=== PATIENT | female | born 1985 | race Caucasian/White ===

== ENCOUNTER 2018-08-24 18:42 | Outpatient (REF) | payer BC, SELFPAY ==
[2018-08-24 19:14] LABS: Abs Immature Grans 0.01 k/cumm (0.0-0.09); Absolute Basophil Count 0.02 k/cumm (0.0-0.2); Absolute Eosinophil Count 0.08 k/cumm (0.0-0.7); Absolute Lymphocyte Count 2.37 k/cumm (1.2-3.4); Absolute Monocyte Count 0.44 k/cumm (0.11-0.7); Absolute Neutrophil Count 4.52 k/cumm (1.2-6.7); Basophils % 0.3; Eosinophils % 1.1; HGB 13.9 g/dL (12.0-15.5); Immature Grans % 0.1; Lymphocytes % 31.9; Mean Corp. HGB Concentration 33.1 g/dL (32.0-36.0); Mean Corpuscular Hemoglobin 29.3 pg (27.0-33.0); Mean Corpuscular Volume 88.6 fL (80-95); Mean Platelet Volume 11.3 fL (8.0-11.0); Monocytes % 5.9; Neutrophils % 60.7; Platelet Count 237 x1000/uL (130-400); RBC 4.74 m/cumm (4.00-5.20); RBC Distribution Width 13.1 % (11.7-14.6); White Blood Cell Count 7.44 k/cumm (4.4-10.8)
[2018-08-24 19:31] LABS: HDL Cholesterol 73 mg/dL (40-60); LDL CHOLESTEROL 99 mg/dL (<100)
[2018-08-24 19:58] LABS: ESR 6 MM/HR (0-20)
[2018-08-26 16:16] LABS: ANA Interpretation Negative (NEGAT)
== END 2018-08-24 19:02 ==
LOC: NCHCN 18:42
PROVIDERS: PCP Nurse Practitioner Family; Visit Provider Nurse Practitioner Family
DX: I73.00 Raynaud's syndrome without gangrene (principal)
CPT/HCPCS: 83721; 85652; 83718; 85025; 86038

== ENCOUNTER 2020-12-26 10:12 | Outpatient (REF) | payer BC, SELFPAY ==
[2020-12-26 14:10] LABS: HCT 44.7 % (36.0-46.0); HGB 14.2 g/dL (11.2-15.7); MCH 29.8 pg (27.0-33.0); MCHC 31.8 % (32.0-36.0); MCV 93.7 fL (80-95); MPV 11.3 fL (8.0-11.0); Platelet Count 238 10^3/uL (130-400); RBC 4.77 10^6/uL (3.93-5.22); RDW 12.4 % (11.7-14.6); RDW-SD 42.7 fL; WBC 6.73 10^3/uL (4.4-10.8)
[2020-12-26 14:13] LABS: Hemoglobin A1C 5.3 % (<5.7)
[2020-12-26 20:24] LABS: TSH (W/Ref FT4) 2.92 uIU/mL (0.36-3.74)
[2020-12-27 00:52] LABS: Vitamin D 25 Total 53.9 ng/mL (30-100)
== END 2020-12-26 10:13 | disposition home or self-care (01) ==
LOC: NCHCN 10:12
PROVIDERS: PCP Nurse Practitioner Family; Visit Provider Nurse Practitioner Family
DX: Z00.00 Encounter for general adult medical examination without abnormal findings (principal); L70.0 Acne vulgaris; R53.83 Other fatigue
CPT/HCPCS: 82306; 85027; 83036; 84443

== ENCOUNTER 2021-11-26 02:45 | Outpatient (CLI) | payer BC, SELFPAY ==
[2021-11-26 16:19] LABS: Kit/Specimen SENT
[2021-11-26 16:26] LABS: Abs Immature Grans 0.02 10^3/uL (0.0-0.06); Absolute Basophil Count 0.03 10^3/uL (0.0-0.2); Absolute Eosinophil Count 0.11 10^3/uL (0.0-0.7); Absolute Monocyte Count 0.62 10^3/uL (0.1-0.8); Absolute Neutrophil Count 7.05 10^3/uL (1.2-6.7); Basophils % 0.3; Eosinophils % 1.1; HCT 37.2 % (36.0-46.0); HGB 12.7 g/dL (11.2-15.7); Immature Grans % 0.2; Lymphocytes % 20.3; MCH 30.8 pg (27.0-33.0); MCHC 34.1 % (32.0-36.0); MCV 90 fL (80-95); MPV 10.5 fL (8.0-11.0); Monocytes % 6.3; Neutrophils % 71.8; Platelet Count 208 10^3/uL (130-400); RBC 4.13 10^6/uL (3.93-5.22); RDW 12.1 % (11.7-14.6); RDW-SD 39.9 fL; WBC 9.83 10^3/uL (4.4-10.8)
[2021-11-26 17:26] LABS: TSH (W/Ref FT4) 3.37 uIU/mL (0.36-3.74)
[2021-11-28 09:57] LABS: Hepatitis B Surface Ag Negative (Negative)
[2021-11-28 10:39] LABS: HIV-1/2 Ag & Ab Screen Negative (Negative)
[2021-11-28 10:53] LABS: Hepatitis C Ab w Rflx HCV PCR Negative (Negative)
[2021-11-28 11:09] LABS: Varicella IgG Antibody Positive (See Note)
[2021-11-28 11:13] LABS: Rubella IgG Ab (UVM) Positive (See Note)
[2021-11-29 23:17] LABS: Syphilis IgG w/Reflex Nonreactive (Nonreactive)
== END 2021-11-26 02:46 | disposition home or self-care (01) ==
LOC: LBO 02:45
PROVIDERS: PCP Nurse Practitioner Family; Visit Provider Advanced Practice Midwife
DX: O09.521 Supervision of elderly multigravida, first trimester (principal); Z3A.10 10 weeks gestation of pregnancy
CPT/HCPCS: 86787; 86803; 86850; 86900; 86901; 87340; 87389; 84443; 85025; 86762; 86780

== ENCOUNTER 2021-11-26 16:13 | Outpatient (REF) | payer BC, SELFPAY ==
--- NOTE | 2021-11-26 15:00 | PAPFT_PTH ---
PATIENT: Ray Queen LOC: [facility] U#:[id number] AGE/SX: 36/F ROOM: RE11/26/[address]: Cristina Michael CNM : 1985 BED: DIS: 11/26/2021 SPEC #: [id number] RECD: 11/26/21 17:21 STATUS: SUSANNAH REElva #: [id number] JOLLY: 11/26/21 15:[address]: Cristina Michael DEPT: [facility] Cytology RECD BY: Niyah Schwartz ENTERED: 11/26/21 17:22 SP TYPE: PAPFT OTHR DR: Elvira Parra Tissues: 1 - CX/ENDOCX FOR PAP SMEARS Procedures: PAP THIN PREP/UVM Screening HPV DNA PROBE Comments: [id number] (CHLAMYDIA/GC)
[2021-11-27 15:12] LABS: Chlamydia Result Negative (Negative); GC Result Negative (Negative)
== END 2021-11-26 16:14 | disposition home or self-care (01) ==
LOC: LBN 16:13
PROVIDERS: PCP Nurse Practitioner Family; Visit Provider Advanced Practice Midwife
DX: Z11.3 Encounter for screening for infections with a predominantly sexual mode of transmission (principal); Z12.4 Encounter for screening for malignant neoplasm of cervix; Z11.51 Encounter for screening for human papillomavirus (HPV)
CPT/HCPCS: 87491; 87591; 88142; 87624

== ENCOUNTER 2021-11-26 17:59 | Outpatient (REF) | payer BC, SELFPAY ==
[2021-11-26 19:10] LABS: Tricyclic Antidepressants Negative (Negative)
[2021-11-26 19:11] LABS: *BARBITURATES SCREEN URINE Negative (Negative); *BENZODIAZEPINES SCREEN URINE Negative (Negative); Cannabinoids THC Negative (Negative); Cocaine Screen,Urine Negative (Negative); OPIATES URINE SCREEN Negative (Negative)
[2021-11-26 22:50] LABS: *AMPHETAMINES SCREEN URINE Negative (Negative)
[2021-12-04 09:07] LABS: Buprenorphine Negative ng/mL (Cutoff: 5.0); Norbuprenorphine Negative ng/mL (Cutoff: 2.5)
== END 2021-11-26 18:00 | disposition home or self-care (01) ==
LOC: LBN 17:59
PROVIDERS: PCP Nurse Practitioner Family; Visit Provider Advanced Practice Midwife
DX: O09.521 Supervision of elderly multigravida, first trimester (principal); Z3A.10 10 weeks gestation of pregnancy
CPT/HCPCS: 80307; 87086

== ENCOUNTER 2022-03-19 02:59 | Outpatient (CLI) | payer BC, SELFPAY ==
[2022-03-19 09:28] LABS: HCT 32.1 % (36.0-46.0); HGB 10.5 g/dL (11.2-15.7); MCH 29.8 pg (27.0-33.0); MCHC 32.7 % (32.0-36.0); MCV 91 fL (80-95); Platelet Count 226 10^3/uL (130-400); RBC 3.52 10^6/uL (3.93-5.22); RDW 12.2 % (11.7-14.6); RDW-SD 40.5 fL; WBC 8.65 10^3/uL (4.4-10.8)
[2022-03-19 09:42] LABS: Glucose,1 Hr (Glucola) 90 mg/dL (80-140)
[2022-03-20 05:46] LABS: Vitamin D 25 Total 24.2 ng/mL (30-100)
== END 2022-03-19 03:00 | disposition home or self-care (01) ==
LOC: LBO 02:59
PROVIDERS: Advanced Practice Midwife; PCP Nurse Practitioner Family; Visit Provider Advanced Practice Midwife
DX: O09.522 Supervision of elderly multigravida, second trimester (principal); Z3A.26 26 weeks gestation of pregnancy
CPT/HCPCS: 36415; 82306; 82950; 85027

== ENCOUNTER → 2022-05-05 02:03 | Outpatient (CLI) | payer BC, SELFPAY ==
--- NOTE | 2022-05-05 09:15 | DI.US_ITS ---
Exam(s) US OB ABBY WEIGHT EXAM: US OB ABBY WEIGHT CLINICAL HISTORY: assess growth and presentation HX macrosomia, O09.529. TECHNIQUE: Transabdominal obstetrical ultrasound was performed. [place] [facility] [place] FINDINGS: There is a single viable intrauterine gestation with cardiac activity identified-150 bpm The fetus is presently in cephalic position . Amniotic fluid: There is a normal amount of amniotic fluid with an ABBY of 19.4cm. Placental location: The placenta is fundal-posterior grade 2. Smaller accessory lobe also noted ante riorly.,With no evidence of placenta previa. Dating parameters place this at approximately 33 weeks and 4 days gestational age, implying SUZY of June 19, 2022. BPD measures 34 weeks and 4 days HC measures 32 weeks and 6 days AC measures 33 weeks and 2 days FL measures 33 weeks and 3 days Estimated weight is 2190 gm-4 pounds 13 ounces Fetus is at the 37th percentile on the Hadlock scale. IMPRESSION:: Viable 3rd trimester gestation, as described above. DATA REPOSITORY:
== END ==
PROVIDERS: PCP Nurse Practitioner Family; Visit Provider Advanced Practice Midwife
DX: O09.523 Supervision of elderly multigravida, third trimester
CPT/HCPCS: 76816

== ENCOUNTER 2022-05-29 17:21 | Outpatient (REF) | payer BC, SELFPAY ==
[2022-05-29 17:26] LABS: *AMPHETAMINES SCREEN URINE Negative (Negative); *BARBITURATES SCREEN URINE Negative (Negative); *BENZODIAZEPINES SCREEN URINE Negative (Negative); Cannabinoids THC Negative (Negative); Cocaine Screen,Urine Negative (Negative); OPIATES URINE SCREEN Negative (Negative)
[2022-05-29 17:27] LABS: COMMENT (LAB VIEW ONLY) 24.97 mg/dL; PROTEIN < 6.0 mg/dL; Tricyclic Antidepressants Negative (Negative)
[2022-06-05 12:38] LABS: Buprenorphine Negative ng/mL (Cutoff: 5.0); Norbuprenorphine Negative ng/mL (Cutoff: 2.5)
== END 2022-05-29 17:22 | disposition home or self-care (01) ==
LOC: LBN 17:21
PROVIDERS: PCP Nurse Practitioner Family; Visit Provider Advanced Practice Midwife
DX: O09.523 Supervision of elderly multigravida, third trimester (principal); R60.0 Localized edema
CPT/HCPCS: 80307; 80348; 82565; 84156; 87081

== ENCOUNTER 2022-06-14 04:15 | Inpatient (IN) | payer BC, SELFPAY ==
[2022-06-14] VITALS (68 sets, daily range): BP systolic 70–146; BP diastolic 51–91; PULSE 0–157; RESP 18; TEMP 36.4–36.9; O2SAT 99
--- NOTE | 2022-06-14 07:53 | HPE_ITS ---
Date of service: 06/14/22 Time of Service: 07:53 Assessment and Plan Assessment and plan (1) Spontaneous onset of labor: Status: Acute Assessment and plan: Admit to Center. Comfort measures. Covid- 19 test. Anticipate . (2) Previous section: Assessment and plan: OR team and Dr. Caraballo notified of admission. Anticipate . OB-HPI Labor/Delivery History of Present Illness Reason for Visit: labor Chief Complaint: Uterine Contractions. SUZY Calculator Estimated Delivery Date Method Current WG Current Estimate 06/19/22 LMP (Certain) 39w 2d Other Estimates 06/15/22 Ultrasound #1 39w 6d Comments: Ray presented this morning with regular contractions every 5-8 minutes and strong contractions. Cervix was 1 c,/ soft/-2 and ballotable. She was admitted to observation and she tried various positions for comfort with good effect. She was resting comfortably on her side at 0730 and was reexamined. Cervix now 5 cms with large bulging bag of water. vertex remains -2 and ballotable. The OR team wa notified and is en route for another OR case at this time. Dr. Klaudia Alicea was also notified of admission. History of Present Expected Delivery Route/Plan TOLAC/ - CNM FOB/ - Dhaval Queen (2nd child together) BG Pt hopes to reach down for baby at delivery; FOB will not be cutting cord Will choose [place] [facility] [place] GBS negative Specific Issues/Plan 1. Prev C/S for breech, desires TOLAC/ 1a. 30 wk appt w/ for , consent signed 04/16 1b. Ray prefers natural labor and IOL at [facility] [place] after 40 weeks. She does not wish to visit [facility] [place] prior to 41 weeks. 2. Had COVID on October 23 (@ 5-6 wks), mild sx. Advised to begin low dose ASA @ 12 wks 3. Pt is vaccinated but not boosted, FOB received booster 4. AMA: cDNA screen (LR female) & level 2 scan & MFM consult @ [facility] [place], sched'ed for 01/30/22 4a. Declines CF/SMA and AFP screens. US at [facility] [place] 01/30 normal 4b. [facility] [place] rec's growth scan 32-34 weeks d/t prior macrosomia, appropriate for TOLAC per MFM 01/30/22 5. Depression/anxiety, no meds but is in therapy (venkata/Ofelia Jc) 6a. Stopped therapy at this time. Yoga teaching training. Practices meditation. 6. Marital stress over , accepts referral to [facility], plan LC consult @ 36 wks 7. Hx macrosomia, declines early glucola at initial OB. Used Freshtest @ 27 wks, result=90 8. Vit D @ 24.2, advised to supplement with D3 2000 IU daily, recheck level 9. extra lobe of placenta noted at 33 weeks US - careful exam of placenta after removal PFSH All Active Problems (Updated 06/14/22 @ 08:03 by Sherie Velazquez CNM) Spontaneous onset of labor (Acute) Pedal edema (Acute) COVID-19 affecting , antepartum (Acute) Prior macrosomia, antepartum (Acute) History of depression, currently (Acute) Marital relationship problem (Acute) stress over Elderly multigravida, currently (Acute) Uterine scar from previous delivery affecting (Acute) Personal history of COVID-19 (Acute) Positive test (Acute 04/10/16) Medical History (Updated 06/14/22 @ 08:03 by Sherie Velazquez CNM) Acne Surgical History (Updated 10/18/21 @ 10:01 by Inna Goyal NP) Previous section 10/2016 for Breech presentation Tooth extraction [place]/ other tooth extraction. Age 17. No complications with anesthesia. Family History Mother Obesity Father Alcohol abuse Herniated disc, cervical Sister Obesity Grandfather Heart disease MGF Grandmother Heart disease MGM Breast cancer PGM Other Essential hypertension Social History Smoking/Tobacco Use Status: Never Smoking risk assessment performed?: Yes Drug use: Never History History 2 Para 1 Hx # Term Pregnancies 1 Multiple births 0 Hx # Pregnancies 0 Ectopic pregnancies 0 AB induced 0 Hx Number of Living Children 1 AB spontaneous 0 Past Pregnancies Del. Date GA/Weeks # Preg Succ Route Wgt Sex Labor Lgth Anesth esia Location Prov Complic 11/26/16 40 No Yes [address] Rajesh Fuchs @ [facility] Delivery Date: 11/26/16 Last Updated by: Cristina Michael Scheduled C/S for breech, did not attempt ECV because of anterior placenta, but did try acupuncture, chiropractic, etc Eliud Meds Allergies and Home Medications Allergies Allergy/AdvReac Type Severity Reaction Status Date / Time cefaclor [From Ceclor] Allergy Intermediate Hives Verified 06/13/22 12:42 gluten AdvReac Unknown Verified 06/13/22 12:42 Mold Spores Allergy Uncoded 06/13/22 12:42 Home Medications Medication Instructions Recorded Confirmed Type KTI-jony-MW-omega 3-fat com #1 27 cap PO DAILY 10/18/21 06/13/22 History mg-1 mg-300 mg capsule ascorbate calcium (vitamin C) 500 500 mg PO DAILY 10/18/21 06/13/22 History mg tablet aspirin 81 mg tablet,delayed 81 mg PO DAILY #90 tabs 11/26/21 06/13/22 Rx release B.coagulan,subtilis 1 bill. tab PO 12/26/21 06/13/22 History cell-inulin 1 gram-vit C 15 mg chew tablet (up4 Probiotics Plus Prebiotic) pyridoxine (vitamin B6) 25 mg 25 mg PO DAILY 12/26/21 06/13/22 History tablet doxylamine succinate 25 mg tablet 25 mg PO QHS PRN 03/19/22 06/13/22 History (Unisom (doxylamine)) ondansetron HCl 4 mg tablet 4 mg PO TID PRN 03/19/22 06/13/22 History Exam Detailed Labor and Delivery Exam Dilation: 5 Effacement (%): 90 station: -2 Cervix position: mid Consistency: soft Chowdary Score: Cervical Points Exam 0 1 2 3 Dilation Closed 1-2cm 3-4 cm 5-6cm Effacement 0-30% 40-50% 60-70% 80% Consistency Firm Medium Soft Station -3 -2 -1,0 +1,+2 Position Posterior Mid Anterior Amniotic Membrane Status: Intact Monitor Mode: External Contraction Frequency(min): every 5 Contraction Duration(sec): 60 Contraction Intensity: Moderate/Strong Fetus A Heart Rate Baseline: 140 Monitor Accelerations: 15 X 15 Monitor Decelerations: None Variability: Moderate (6-25 BPM) Presentation: Vertex Categories: Category I Est. Weight: 7 lb Respiratory Exam Respiratory Exam: Normal Cardiovascular Exam Cardiovascular Exam: Normal Abdominal Exam Abdominal Exam: Normal Exam Exam: Normal Extremities Exam Extremities Exam: Normal Skin Exam Skin Exam: Normal Psychiatric Exam Psychiatric Exam: Normal Risk Assessment Risk for Shoulder Dystocia Historical/Initial OB: NEGATIVE FOR: Pelvic Abnormality, Pre- BMI>30, Previous Shoulder Dystocia or Previous Macrosomia 40 Weeks: NEGATIVE FOR: EFW> 4500 gms, Maternal Weight Gain >40lb or Post Dates Risk for Pre-Eclampsia Date Initiated/Initials: indicated due to COVID infection in early pregnany 11/08/21 jk Yes, if one or more: NEGATIVE FOR: Hx Pre-E/Gest HTN, Chronic HTN, Multiple Gestation, Pre-gestational DM, Renal Disease, Systemic Lupus or APA Syndrome Yes, if 2 or more: POSITIVE FOR: Age>= 35 yrs; NEGATIVE FOR: Nulliparity, >10yr btwn pregnancies, BMI>30, ethinicty, Mother/Sister w/ Pre-E or Previous IUGR Risk for Post- Hemorrhage Initial: NEGATIVE FOR: Multiple Gestation, Previous PPH, Known Clotting Deficiency, Grand Multiparity or Anticoagulation At Risk?: No Risks Reviewed Risks Reviewed Upon Admission: Yes
[2022-06-14 08:51] LABS: Source Nasal/Nares
[2022-06-14 08:54] LABS: HCT 41.4 % (36.0-46.0); HGB 13.7 g/dL (11.2-15.7); MCH 29.7 pg (27.0-33.0); MCHC 33.1 % (32.0-36.0); MCV 90 fL (80-95); MPV 10.7 fL (8.0-11.0); Platelet Count 219 10^3/uL (130-400); RBC 4.62 10^6/uL (3.93-5.22); RDW 13.2 % (11.7-14.6); RDW-SD 43.6 fL; WBC 15.72 10^3/uL (4.4-10.8)
--- NOTE | 2022-06-14 08:55 | W.PM.OBNL1 ---
Date of service: 06/14/22 Time of Service: 09:09 Informed Consent Informed Consent: Vaginal after (verbal consent obtained by CNM service during and reaffirmed at time of admission.) Contractions Monitor Mode: External Contraction Frequency(min): 3-4min Contraction Duration(sec): 40-50 Fetus A Heart Rate Baseline: 150 Presentation: Cephalic (per CNM report) Variability: Moderate (6-25 BPM) Categories: Category I FHR Rhythm: Regular Characteristics: Normal Accelerations: 15 X 15 Decelerations: None Assessment Note: Pt CNM report vtx with high presenting part. Assessment and Plan Assessment and plan (1) Spontaneous onset of labor: Status: Acute (2) Desires vaginal after trial: Status: Acute Assessment and plan: Currently surveillance is reassuring. Anesthesia provider and OR team of been notified. Patient currently tolerating contractions well. Plans to anticipate a vaginal . She has repeated her desire to undergo a trial of labor after a previous delivery. (3) Uterine scar from previous delivery affecting : Status: Acute Assessment and plan: Continue monitoring heart rate tracing and contraction pattern. Follow labor curve closely. Objective Abnormal lab results 06/14/22 Range/Units 08:20 WBC 15.72 H (4.4-10.8) 10^3/uL Temp Pulse Resp BP Pulse Ox 98.1 F 94 H 18 135/91 H 99 06/14/22 08:38 06/14/22 08:55 06/14/22 08:38 06/14/22 08:38 06/14/22 08:38 Laboratory Results WBC 15.72 10^3/uL (4.4-10.8) H 06/14/22 08:20 RBC 4.62 10^6/uL (3.93-5.22) 06/14/22 08:20 Hgb 13.7 g/dL (11.2-15.7) 06/14/22 08:20 Hct 41.4 % (36.0-46.0) 06/14/22 08:20 MCV 90 fL (80-95) 06/14/22 08:20 MCH 29.7 pg (27.0-33.0) 06/14/22 08:20 MCHC 33.1 % (32.0-36.0) 06/14/22 08:20 RDW 13.2 % (11.7-14.6) 06/14/22 08:20 Plt Count 219 10^3/uL (130-400) 06/14/22 08:20 MPV 10.7 fL (8.0-11.0) 06/14/22 08:20 COVID-19 Source Nasal/Nares 06/14/22 08:00 Objective Narrative Objective Narrative: Breathing and vocalizing during contractions. Standing in room able to recruit contractions. Subjective Interval history since last seen: Pt of the CNM service. Planning HAN. Uterine contractions during the night. Han contractions well. Primarily back labor. Results Hemoglobin/Hematocrit: Hgb 13.7 g/dL (11.2-15.7) 06/14/22 08:20 Hct 41.4 % (36.0-46.0) 06/14/22 08:20 Abnormal Lab Findings: Abnormal Labs 06/14/22 08:20 WBC 15.72 H
--- NOTE | 2022-06-14 09:19 | W.ANESPRE ---
General Info Height: 5 ft 6 in Weight: 77.564 kg Body Mass Index (BMI): 27.6 Meds Allergies and Home Medications Allergies Allergy/AdvReac Type Severity Reaction Status Date / Time cefaclor [From [facility]] Allergy Intermediate Hives Verified 06/13/22 12:42 gluten AdvReac Unknown Verified 06/13/22 12:42 Mold Spores Allergy Uncoded 06/13/22 12:42 Home Medication Medication Instructions Recorded OYB-dift-BL-omega 3-fat com #1 27 cap PO DAILY 10/18/21 mg-1 mg-300 mg capsule ascorbate calcium (vitamin C) 500 500 mg PO DAILY 10/18/21 mg tablet aspirin 81 mg tablet,delayed 81 mg PO DAILY #90 tabs 11/26/21 release B.coagulan,subtilis 1 bill. tab PO 12/26/21 cell-inulin 1 gram-vit C 15 mg chew tablet (up4 Probiotics Plus Prebiotic) pyridoxine (vitamin B6) 25 mg 25 mg PO DAILY 12/26/21 tablet doxylamine succinate 25 mg tablet 25 mg PO QHS PRN 03/19/22 (Unisom (doxylamine)) ondansetron HCl 4 mg tablet 4 mg PO TID PRN 03/19/22 Current Visit Medications: Current Medications Generic Name Dose Route Start Last Admin Trade Name Freq PRN Reason Stop Dose Admin Sodium Chloride 500 mls @ 0 mls/hr 06/14/22 07:52 Saline 500ml Bag IV PRN PRN As Directed IV Miscellaneous Supplies 1 each 06/14/22 08:00 Iv Access IV DIRECTED ALETHEA Sodium Chloride 0 ml 06/14/22 07:52 Normal Saline Flush 10 Ml Syr IVP PRN PRN PFSH Active Problems Active Problems: Problem Status Onset Code Desires vaginal after trial O34.219 Spontaneous onset of labor Pedal edema R60.0 COVID-19 affecting , antepartum O98.519, U07.1 Prior macrosomia, antepartum O09.299 History of depression, currently O99.891, Z86.59 Marital relationship problem Z63.0 Elderly multigravida, currently O09.529 Uterine scar from previous delivery affecting O34.219 Personal history of COVID-19 Z86.16 Positive test 04/10/16 Z32.01 Medical History Medical History (Updated 06/14/22 @ 08:03 by Sherie Velazquez CNM) Acne Surgical History Surgical History (Updated 06/14/22 @ 09:18 by Klaudia Caraballo MD) Previous section 10/2016 for Breech presentation Tooth extraction [place]/ other tooth extraction. Age 17. No complications with anesthesia. Tobacco Smoking/Tobacco Use Status: Never Substance Use Substance use: Never Prental History History 2 Para 1 Hx # Term Pregnancies 1 Multiple births 0 Hx # Pregnancies 0 Ectopic pregnancies 0 AB induced 0 Hx Number of Living Children 1 AB spontaneous 0 Past Pregnancies Del. Date GA/Weeks # Preg Succ Route Wgt Sex Labor Lgth Anesthesia Location Prov Complic 11/26/16 40 No Yes 4195.[address] Fuchs @ [facility] Delivery Date: 11/26/16 Last Updated by: Cristina Michael Scheduled C/S for breech, did not attempt ECV because of anterior placenta, but did try acupuncture, chiropractic, etc Eliud Vital Signs and Lab Results Vital Signs Most Recent Vital Signs in EMR: Most Recent Vital Signs Temp Pulse Resp BP Pulse Ox 36.7 C 91 H 18 135/91 H 99 06/14/22 08:38 06/14/22 09:19 06/14/22 08:38 06/14/22 08:38 06/14/22 08:38 Lab Results Result Diagrams: 06/14/22 08:20 Blood Type / Crossmatch: No Data to Display Complete Blood Count: White Blood Count 15.72 10^3/uL (4.4-10.8) H 06/14/22 08:20 Red Blood Count 4.62 10^6/uL (3.93-5.22) 06/14/22 08:20 Hemoglobin 13.7 g/dL (11.2-15.7) 06/14/22 08:20 Hematocrit 41.4 % (36.0-46.0) 06/14/22 08:20 Platelet Count 219 10^3/uL (130-400) 06/14/22 08:20 Complete Metabolic Panel: No Data to Display Liver Function Panel: No Data to Display Coagulation Panel: No Data to Display Cardiac Panel: No Data to Display Arterial Blood Gas: No Data to Display Venous Blood Gas: No Data to Display Pancreas Panel: No Data to Display Thyroid Panel: No Data to Display Infectious Disease: Coronavirus (COVID-19)(PCR) Pending 06/14/22 08:00 Coronavirus 2019 Source Nasal/Nares 06/14/22 08:00 Blood Cultures: No Data to Display Toxicology Panel: Urine Amphetamines Screen Negative (Negative) 05/29/22 16:30 Urine Benzodiazepines Screen Negative (Negative) 05/29/22 16:30 Urine Barbiturates Screen Negative (Negative) 05/29/22 16:30 Urine Cocaine Screen Negative (Negative) 05/29/22 16:30 Urine Opiates Screen Negative (Negative) 05/29/22 16:30 Ur Tricyclic Antidepressants Screen Negative (Negative) 05/29/22 16:30 Ur Tetrahydrocannabinol (THC) Scrn Negative (Negative) 05/29/22 16:30 Panel: No Data to Display Anesthesia Assessment and Plan Anesthesia History Personal History: No History of Anesthesia Complications Family History: No Family History of Anesthesia Complications Exercise Tolerance Exercise Tolerance: Metabolic Equivalents>4 Cardiac & Pulmonary Exam Cardiac Exam: Normal S1/S2 Heart Sounds Pulmonary Exam: Clear Bilateral Breath Sounds ASA Classification ASA Score: ASA 2 NPO Status NPO Status: Full Stomach Status Status: Confirmed Anesthesia Plan Resuscitation Status: Full Code Monitors Used: Standard Monitors Preoperative Comments:: 37 yo female for TOLAC. Sig PMHx: never smoker, no current ETOH, Previous Anes: - c section with 1.5 mL/15 mcg fent/150 mcg morphine. 400 mcg phenyl t/o. c/o nausea and tingling hands.
[2022-06-14 09:23] LABS: COVID-19 PCR Negative (Negative)
[2022-06-14] MEDS: Lactated Ringers 500 ML IV (10:38)
--- NOTE | 2022-06-14 10:49 | W.PM.OBNL1 ---
Date of service: 06/14/22 Time of Service: 10:49 Informed Consent Informed Consent: Vaginal after (verbal consent obtained by [facility] service during and reaffirmed at time of admission.) Pelvic Exam Dilation: 6 Effacement (%): 100 station: -2 Position: OP Cervix Position: posterior Consistency: soft Comments: Consultation with Dr Caraballo re: cervical exam at 0930. She suggested AROm and that was performed for a large amount of clear fluid. Contractions have become stronger and Ray is begginning to experience more pelvic pressure. Anticipate . Contractions Monitor Mode: External Contraction Frequency(min): 2-3 Contraction Duration(sec): 50-60 Intensity: Moderate/Strong Fetus A Monitor: External (US) Heart Rate Baseline: 130 Presentation: Vertex Variability: Moderate (6-25 BPM) Categories: Category II FHR Rhythm: Regular Accelerations: 15 X 15 Decelerations: Variable (episodic) Amniotic Membrane Status: Ruptured Rupture Method: Artifical Amniotic Fluid: Clear Assessment and Plan Assessment and plan (1) Desires vaginal after trial: Status: Acute (2) Spontaneous onset of labor: Status: Acute Assessment and plan: IV started for LR 1000 cc bolus. position changes for comfort Will continue to monitor heart rate pattern. Anticipate , Objective Abnormal lab results 06/14/22 Range/Units 08:20 WBC 15.72 H (4.4-10.8) 10^3/uL Temp Pulse Resp BP Pulse Ox 98.1 F 97 H 18 135/91 H 99 06/14/22 08:38 06/14/22 10:47 06/14/22 08:38 06/14/22 08:38 06/14/22 08:38 Laboratory Results WBC 15.72 10^3/uL (4.4-10.8) H 06/14/22 08:20 RBC 4.62 10^6/uL (3.93-5.22) 06/14/22 08:20 Hgb 13.7 g/dL (11.2-15.7) 06/14/22 08:20 Hct 41.4 % (36.0-46.0) 06/14/22 08:20 MCV 90 fL (80-95) 06/14/22 08:20 MCH 29.7 pg (27.0-33.0) 06/14/22 08:20 MCHC 33.1 % (32.0-36.0) 06/14/22 08:20 RDW 13.2 % (11.7-14.6) 06/14/22 08:20 Plt Count 219 10^3/uL (130-400) 06/14/22 08:20 MPV 10.7 fL (8.0-11.0) 06/14/22 08:20 COVID-19 Source Nasal/Nares 06/14/22 08:00 SARS-CoV-2 (PCR) Negative (Negative) 06/14/22 08:00 Patient ABO/Rh A Positive 06/14/22 08:20 Antibody Screen NEGATIVE 06/14/22 08:20 Results Hemoglobin/Hematocrit: Hgb 13.7 g/dL (11.2-15.7) 06/14/22 08:20 Hct 41.4 % (36.0-46.0) 06/14/22 08:20 Abnormal Lab Findings: Abnormal Labs 06/14/22 08:20 WBC 15.72 H
[2022-06-14] MEDS: Lidocaine 1% Multi-Dose 20 ML VIAL IJ (14:45)
[2022-06-14] MEDS: Oxytocin 10 UNITS/ML VIAL IM (14:54)
--- NOTE | 2022-06-14 16:16 | OBVDS_ITS ---
Date of service: 06/14/22 Time of Service: 16:16 OB Labor/ Delivery Information Baby A Delivery Delivery Method: Spontaneaous Presentation: Vertex Amniotic Fluid: Clear Estimated Blood Loss: 300 Delivery Outcome: Liveborn Complications: none Note: Ray used the tub for comfort and progressed to full dilation in the tub and began having an urge to push at 130. FHTs were 130s during first stage of labor with occasional variable decelerations. FHTs 130s in second stage with episodic variable decelerations associated with pushing. Ray began pushing in the tub. Second stage huddle was done. She move to the stool after approximately 2 hours of pushing and was able to bring the caput down to the perineum at 1350. She requested to return to the tub and she continued pushing there for another 30-40 minutes. A large amount of caput was visible on the perineum with no advancement despite excellent pushing. The perineum was noted to be very tight. She was moved to the bed and resumed pushing in hands and knees position. Local anesthetic was infused in the perineum in preparation for possible episiotomy. The baby delivered with the next push. Spontaneous delivery of female delivered in JATINDER position. Baby was placed in mother's arms and dried and stimulated. She had a Spontaneous cry. The cord was clamped and cut by Ray. The placenta delivered spontaneously and appears to be intact with a three vessel cord. Pitocin 10 was administered IM before delivery of the placenta because the IV came out while she was pushing. The perineum was inspected and there was a 2nd degree laceration with bilateral labial extensions which was repaired with Dr. Caraballo's assistance with retraction and guidance with re-approximation. The baby did breastfeed. After delivery, Mother and baby and father of the baby were stable and bonding well in the delivery room and there were no complications. Providers Nurse Surveillance Sensor Operator: Sherie Velazquez Nurse: Nuzhat Ardon Nurse: Marjorie Harris Labor/Delivery Information Number of Babies in Womb: 1 Steroids Given: None Reason Steroids Not Administered: N/A Group Beta Strep: Negative Antibiotics Administered: No Rubella Status: Immune Varicella Immunity: Immune Maternal Complications: Prolonged Second Stage(>2hrs) Shoulder Dystocia: Yes Stages of Labor Onset of Labor Date: 06/14/22 Onset of Labor Time: 07:00 Complete Dilatation Date: 06/14/22 Complete Dilatation Time: 11:30 Labor - Stage 1 Duration: 4 hours and 30 minutes ROM Baby A: 06/14/22 ROM Baby A: 09:40 ROM Total Time- Baby A: [id number] Infant Delivery Date-Baby A: 06/14/22 Infant Delivery Time-Baby A: 14:50 Labor Stage 2 Duration: 3 hours and 20 minutes Placenta Delivery Date-Baby A: 06/14/22 Placenta Delivery Time-Baby A: 14:57 Labor-Stage 3 Duration: 7 minutes Total Length of Labor-Baby A: 7 hours and 50 minutes Placenta Cultured: No Placenta Status: Delivered Baby A Gender: Female Gestational Status: Term (39-41.6 wks) Gestational Age in Weeks/Days: 39 Weeks and 2 Days Score-1 Minute Interval(Baby A) Heart Rate-1 minute: 100 BPM or Greater Respiratory Effort- 1 minute: Spontaneous/Strong Cry Muscle Tone-1 minute: Active Movement Reflex Response-1 minute: Prompt Response Color-1 minute: Pallor or Cyanosis Total Score-1 minute: 8 Score-5 Minute Interval(Baby A) Heart Rate- 5 minute: 100 BPM or Greater Respiratory Effort-5 minute: Spontaneous/Strong Cry Muscle Tone-5 minute: Active Movement Reflex Response-5 minute: Prompt Response Color-5 minute: Bluish Hands or Feet Total Score- 5 minute: 9
[2022-06-14] MEDS: Docusate Sodium 100 MG CAP PO (17:30)
[2022-06-14] MEDS: Acetaminophen 325 MG TAB 650 MG PO ×2 (17:30→22:21)
[2022-06-14] MEDS: Dibucaine 1% 28 GM TUBE TP (17:30)
[2022-06-14] MEDS: Hamamelis Leaf/Glycerin 100 EACH BOX PR (18:15)
[2022-06-14] MEDS: Ibuprofen 600 MG TAB PO ×2 (18:15→23:40)
[2022-06-15 06:20] LABS: HCT 34.2 % (36.0-46.0); HGB 11.4 g/dL (11.2-15.7); MCH 29.8 pg (27.0-33.0); MCHC 33.3 % (32.0-36.0); MCV 90 fL (80-95); MPV 10.8 fL (8.0-11.0); Platelet Count 229 10^3/uL (130-400); RBC 3.82 10^6/uL (3.93-5.22); RDW 13.4 % (11.7-14.6); WBC 19.31 10^3/uL (4.4-10.8)
[2022-06-15 07:55] VITALS: BP 118/76; PULSE 103; RESP 16; TEMP 36.6; O2SAT 99
[2022-06-15] MEDS: Acetaminophen 325 MG TAB 650 MG PO ×2 (07:57→14:15)
[2022-06-15] MEDS: Ibuprofen 600 MG TAB PO ×2 (07:58→14:15)
[2022-06-15] MEDS: Docusate Sodium 100 MG CAP PO (07:58)
--- NOTE | 2022-06-15 11:15 | DSE_ITS ---
Date of service: 06/15/22 Time of Service: 11:15 DS: Diagnosis Discharge Diagnosis (1) Term of female : Status: Acute Asessment and Plan: Complains of perineal swelling and pain, sore nipples from frequent nursing and occasional cramping. Caring for baby independently. Pain is managed well with oral analgesics. Voiding without difficulty. well. A - stable mother and baby , Post day 1, perineal laceration, History of post depression. P - Discharge to home today. Routine post instructions. Signs of post depression reviewed. Sitz baths at home recommended. [facility] Discharge Plan Disposition Patient Disposition: Home Condition: Good Discharge Details Reason For Visit: Rule Out Labor Admit Date/Time: 06/14/22 07:52 Admit Provider: Sherie Velazquez Attending Provider: Sherie Velazquez Primary Care Provider: Elvira Parra Home Meds and New Rx's Prescriptions: No Action ondansetron HCl 4 mg tablet 4 mg PO TID PRN Unisom (doxylamine) 25 mg tablet 25 mg PO QHS PRN ascorbate calcium (vitamin C) 500 mg tablet 500 mg PO DAILY [id number] 3-fat com #1 27-1-300 mg capsule 1 cap PO DAILY aspirin 81 mg tablet,delayed release (DR/EC) 81 mg PO DAILY Qty: 90 5RF pyridoxine (vitamin B6) 25 mg tablet 25 mg PO DAILY up4 Probiotics Plus Prebiotic 1 billion cell- 1 gram-15 mg tablet,chewable 1 tab PO 1XD Label Comments: pt taking pink stork probiotic 2-3 times a day. Discharge Instructions Stand Alone Forms: BC Instructions, BC Post Vaginal Deliver Activity:: Activity as Tolerated Equipment/Supplies:: No Equipment Needed Diet:: As Tolerated Discharge Orders Discharge Orders: Discharge Order (Routine); Ordered 06/15/22 Ordered By: Sherie Velazquez OB:DS Summary Summary Vaginal Delivery Method: Spontaneaous Episiotomy Description: None Laceration Description: Perineal Laceration Extension: Second Degree Contraception Discussed Contraception Discussed: Yes Contraceptive Plan: Vasectomy, Infant Gender-Baby A: Female weight: 7 lb 15.163 oz Status at Discharge Functional status at discharge: independent ambulation Overall status at discharge: patient is back to baseline Mental Status: mental status grossly normal Speech and Movement: speech and movement normal Mood: congruent mood Affect: normal affect Exam Physical Exam Vital signs: Temp Pulse Resp BP Pulse Ox 97.9 F 103 H 16 118/76 99 06/15/22 07:55 06/15/22 07:55 06/15/22 07:55 06/15/22 07:55 06/15/22 07:55 Respiratory Exam Respiratory Exam: Normal Cardiovascular Exam Cardiovascular Exam: Normal Fundal Exam Fundus: Below Umbilicus and Firm Rectal Exam Rectal Exam: Hemmorhoids (large cluster of hemorrhoids. No thrombosis) Exam Perineum: Bruising, Edematous, Hemorrhoids and Repair Intact External: Present swelling Comments: small area of bruising on perineum. swelling in area of laceration. Well- approximated. Extremities Exam Extremity Exam: Normal Psychiatric Exam Psychiatric Exam: Normal PFSH All Active Problems (Updated 06/15/22 @ 11:16 by Sherie Velazquez CNM) Term of female (Acute) Desires vaginal after trial (Acute) Spontaneous onset of labor (Acute) Pedal edema (Acute) COVID-19 affecting , antepartum (Acute) Prior macrosomia, antepartum (Acute) History of depression, currently (Acute) Marital relationship problem (Acute) stress over Elderly multigravida, currently (Acute) Uterine scar from previous delivery affecting (Acute) Personal history of COVID-19 (Acute) Positive test (Acute 04/10/16) Medical History (Updated 06/15/22 @ 11:16 by Sherie Velazquez CNM) Acne Surgical History (Updated 06/14/22 @ 09:18 by Klaudia Caraballo MD) Previous section 10/2016 for Breech presentation Tooth extraction [place]/ other tooth extraction. Age 17. No complications with anesthesia. Family History Mother Obesity Father Alcohol abuse Herniated disc, cervical Sister Obesity Grandfather Heart disease MGF Grandmother Heart disease MGM Breast cancer PGM Other Essential hypertension Social History Smoking/Tobacco Use Status: Never Smoking risk assessment performed?: Yes Drug use: Never Do you feel safe at home: No Do you feel safe in your relationship?: No History History 2 Para 1 Hx # Term Pregnancies 1 Multiple births 0 Hx # Pregnancies 0 Ectopic pregnancies 0 AB induced 0 Hx Number of Living Children 1 AB spontaneous 0 Past Pregnancies Del. Date GA/Weeks # Preg Succ Route Wgt Sex Labor Lgth Anesth esia Location [facility] 11/26/16 40 No Yes [address] Rajesh Fuchs @ [facility] Delivery Date: 11/26/16 Last Updated by: Cristina Michael Scheduled C/S for breech, did not attempt ECV because of anterior placenta, but did try acupuncture, chiropractic, etc Eliud DS: Data Vitals/I&O Vitals and I&O: Vital Signs Temperature 97.9 F 06/15/22 07:55 Pulse 103 H 06/15/22 07:55 Pulse Rhythm Regular 06/15/22 07:55 Respiratory Rate 16 06/15/22 07:55 Respiratory Depth Normal 06/14/22 19:40 Blood Pressure 118/76 06/15/22 07:55 Blood Pressure Mean 90 06/15/22 07:55 Pulse Oximetry 99 06/15/22 07:55 Oxygen Delivery Method Room Air 06/14/22 08:38 Oxygen Flow Rate 0 06/14/22 08:38 Pain Level 3 06/15/22 07:58 Comment 06/14/22 19:39 Intake & Output 06/14/22 06/14/22 06/15/22 11:59 23:59 11:59 Output Total 950 / 950 900 / 900 Balance -950 / -950 -900 / -900 Weight 171 lb Output: Urine 950 / 950 900 / 900 Other: Urine Color Pale Bright Red Data Completed and Pending Labs on day of discharge: Labs from last 24 hours 06/15/22 05:40 WBC 19.31 H RBC 3.82 L Hgb 11.4 D Hct 34.2 L MCV 90 MCH 29.8 MCHC 33.3 RDW 13.4 Plt Count 229 MPV 10.8
[2022-06-15 16:05] VITALS: BP 112/74; PULSE 98; RESP 18; TEMP 36.7
== END 2022-06-15 17:00 | disposition home or self-care (01) | DRG 807 ==
PROVIDERS: Admitting Provider Advanced Practice Midwife; PCP Nurse Practitioner Family; Visit Provider Advanced Practice Midwife
DX: O34.211 Maternal care for low transverse scar from previous cesarean delivery (principal); Z37.0 Single live birth; Z3A.39 39 weeks gestation of pregnancy; N85.8 Other specified noninflammatory disorders of uterus; O70.1 Second degree perineal laceration during delivery; O63.1 Prolonged second stage (of labor); O99.344 Other mental disorders complicating childbirth; F41.8 Other specified anxiety disorders; O43.193 Other malformation of placenta, third trimester
CPT/HCPCS: 36415; 85027; 86850; 86900; 86901; 87635; 59025; G0378; J2590

== ENCOUNTER 2024-01-07 12:43 | Emergency (ER) | payer BC, SELFPAY ==
[2024-01-07 12:58] VITALS: BP 144/100; PULSE 104; RESP 20; TEMP 35.9; O2SAT 99
--- NOTE | 2024-01-07 13:06 | ED.GENADUL_ITS ---
Discharge Plan Disposition Patient Disposition: Home Condition: Stable Discharge Details Clinical Impression: Contact dermatitis Primary Care Provider: Elvira Canales ED Provider: Diego Sinha Home Meds and New Rx's Prescriptions: New clobetasol 0.05 % cream 1 applic topical DAILY Qty: 15 0RF Rx Instructions: apply a thin film to affected area once per day Continued ondansetron HCl 4 mg tablet 4 mg PO TID PRN Unisom (doxylamine) 25 mg tablet 25 mg PO QHS PRN ascorbate calcium (vitamin C) 500 mg tablet 500 mg PO DAILY [id number] 3-fat com #1 27-1-300 mg capsule 1 cap PO DAILY aspirin 81 mg tablet,delayed release (DR/EC) 81 mg PO DAILY Qty: 90 5RF pyridoxine (vitamin B6) 25 mg tablet 25 mg PO DAILY up4 Probiotics Plus Prebiotic 1 billion cell- 1 gram-15 mg tablet,chewable 1 tab PO 1XD Patient Comments: pt taking pink stork probiotic 2-3 times a day. Discharge Instructions Instructions: Contact dermatitis, Clobetasol (Topical) Additional Instructions: You were seen in the emergency department for your severe contact dermatitis with questionable presentation of a rare condition called bullous pemphigoid. I have arranged for follow-up with you at [facility] dermatology clinic on the urgent follow-up list. Please contact them if you have not heard within 48 hours of appointment time. Please continue taking your Olivia daily, please continue taking your prednisone and Bactrim prescribed by other providers, please order picker the topical high potency steroid clobetasol from [facility] in [place] and apply as directed. Should your rash to your abdomen and torso start significantly worsening or you have any sloughing off of skin with any friction around the rash. You need to return to an emergency department immediately. Return for fever and severe increase in swelling. Referrals: [facility] [Outside] Elvira Canales [Primary Care Provider] - Discharge Data Discharge Date/Time-TO BE ENTERED AT DEPARTURE: 01/07/24 14:52 HPI General Date/Time Provider Initiated Documentation: 01/07/24 13:06 . HPI Narrative: 38 year-old female presents to ED today by POV/ambulating with a chief complaint of skin rash, bullae on her left lower extremity with onset noted this past Thursday- [place] questions plant related contact dermatitis at onset. Quality described as at first an itchy raised red rash on posterior L thigh, now has a bullae at distal L posterior calf, intermittent waxing and waning of the rash to L thigh- has been applying various creams- on antibiotics and prednisone, no radiation to large purulent drainage, large fluctuant swelling, fever, does endorse some macular spots to abdomen now. Severity is described as severe. Palliating factors include trial of doxycycline- UC provider had her D/c and switch to prednisone. Provoking factors include nothing specific- possibly poison remy exposure along the river fishing with her son. Patient not anticoagulated. Related Data Home Medications ?Medication ?Instructions ?Recorded ?Confirmed [id number]-ZR-omega 3-fat com #1 27 1 cap PO DAILY 10/18/21 06/14/22 mg-1 mg-300 mg capsule ascorbate calcium (vitamin C) 500 500 mg PO DAILY 10/18/21 06/14/22 mg tablet aspirin 81 mg tablet,delayed 81 mg PO DAILY #90 tabs 11/26/21 06/14/22 release B.coagulan,subtilis 1 bill. 1 tab PO 1XD 12/26/21 06/14/22 cell-inulin 1 gram-vit C 15 mg chew tablet (up4 Probiotics Plus Prebiotic) pyridoxine (vitamin B6) 25 mg 25 mg PO DAILY 12/26/21 06/14/22 tablet doxylamine succinate 25 mg tablet 25 mg PO QHS PRN 03/19/22 06/14/22 (Unisom (doxylamine)) ondansetron HCl 4 mg tablet 4 mg PO TID PRN 03/19/22 06/14/22 clobetasol 0.05 % topical cream 1 applic topical DAILY #15 grams 01/07/24 Previous Rx's ?Medication ?Instructions ?Recorded aspirin 81 mg tablet,delayed 81 mg PO DAILY #90 tabs 11/26/21 release clobetasol 0.05 % topical cream 1 applic topical DAILY #15 grams 01/07/24 Allergies Allergy/AdvReac Type Severity Reaction Status Date / Time cefaclor (From [facility]) Allergy Intermediate Hives Verified 06/14/22 11:55 gluten AdvReac Unknown Verified 06/14/22 11:55 Mold Spores Allergy Uncoded 06/14/22 11:55 General Stated Complaint: Cellulitis ZOE: 3 Review of Systems All systems reviewed & are unremarkable except as noted in HPI and below Exam Narrative Exam Narrative: GENERAL APPEARANCE: Well-nourished, non-toxic, awake and alert, atraumatic, no acute distress. SKIN: Warm, pink, dry, intact, macular diffuse erythema to the entire posterior right thigh with some crusted macular lesions without evidence of abscess or purulent drainage, there is a 1.5 cm bullae at the distal posterior left calf, macular rash of abdomen HEAD: Normocephalic, atraumatic, normal hair distribution for gender/age. EYES: Pupils PERRLA, EOMs intact without nystagmus, normal conjunctiva, no exudates on lids/lashes. ENT: Nares patent, no circumoral cyanosis, no facial swelling NECK: Supple, trachea midline, painless cervical ROM. LUNGS/CHEST: Non-labored respirations, normal A/P diameter, symmetrical expansion, no chest wall deformity HEART (CV/PV): No peripheral edema, no JVD. ABDOMEN: Soft, non-distended, no guarding. MSK: Normal ROM, no swelling/deformity to bilateral UEs or LEs, moving all extremities without weakness, no cyanosis, spine midline without tenderness, normal curvature. NEURO: Mental Status AAOx4 - alert to person, place, time, events No facial droop, no forehead involvement. Motor: No focal weakness - strength 5/5 in bilateral UEs and LEs, proximal and distal, symmetric. Sensory: sensation intact to light touch globally. Gait normal: patient ambulated without ataxia into ED room. PSYCH: euthymic, cooperative, pleasant, appropriate speech Course Vital Signs Vital signs: Vital Signs Temperature 35.9 C L 01/07/24 12:58 Pulse 104 H 01/07/24 12:58 Respiratory Rate 20 01/07/24 12:58 Blood Pressure 144/100 H 01/07/24 12:58 Pulse Oximetry 99 01/07/24 12:58 Temperature 35.9 C L 01/07/24 12:58 Temperature Source Skin 01/07/24 12:58 Pulse 104 H 01/07/24 12:58 Respiratory Rate 20 01/07/24 12:58 Blood Pressure 144/100 H 07/11/24 12:58 Blood Pressure Position Sitting 01/07/24 12:58 Pulse Oximetry 99 01/07/24 12:58 Oxygen Delivery Method Room Air 01/07/24 12:58 Oxygen Flow Rate 0 01/07/24 12:58 Pain Level 3 01/07/24 12:58 Medical Decision Making This dictation utilizes [id number] dictation software and may contain unedited grammatical errors. 38 year-old female presents to ED today by POV/ambulating with a chief complaint of skin rash, bullae on her left lower extremity with onset noted this past Thursday- [place] questions plant related contact dermatitis at onset. Quality described as at first an itchy raised red rash on posterior L thigh, now has a bullae at distal L posterior calf, intermittent waxing and waning of the rash to L thigh- has been applying various creams- on antibiotics and prednisone, no radiation to large purulent drainage, large fluctuant swelling, fever, does endorse some macular spots to abdomen now. Severity is described as severe. Palliating factors include trial of doxyc ycline- UC provider had her D/c and switch to prednisone. Provoking factors include nothing specific- possibly poison remy exposure along the river fishing with her son. Patients' medical history: Noncontributory. Family and social history: Noncontributory. Pertinent exam findings / vital signs include macular diffuse erythema to the entire posterior right thigh with some crusted macular lesions without evidence of abscess or purulent drainage, there is a 1.5 cm bullae at the distal posterior left calf, macular rash of abdomen, otherwise benign exam. Differential / pathologies of concern include contact dermatitis, cellulitis, bullous pemphigoid. Diagnostic studies of: -CBC, CMP, lactate, procalcitonin, tick panel, CRP/ESR, blood cultures. -CBC shows no leukocytosis -CMP totally benign -Lactate within normal limits -CRP and ESR negative -Procalcitonin negative -Tick panel pending Interventions of: -Recommend the patient continue Bactrim, continue with their prednisone prescribed by previous provider, added topical clobetasol and consulted with [facility] dermatology who will follow-up with the patient on urgent basis. ED Course/Assessment/Plan: 38-year-old female presents with severe waxing and waning raised rash that is now macular and worsening, now having some macular spread to her abdomen as well as a bullae popping up remote from the site, this could be a severe contact dermatitis from poison remy or other such plants by the [place]-versus cellulitic changes versus bullous pemphigoid. Due to the possibility of bullous pemphigoid I did consult with [facility] dermatology to arrange the patient for urgent follow-up. I added topical clobetasol to the regimen, recommend strict return criteria for any signs of fever, red streaking, sloughing of the skin. Findings not consistent with SJS or TENS, sepsis, severe cellulitis. Disposition of Contact Dermatitis. Patient verbalized understanding of the plan and return to ED criteria and engaged in shared decision making. Medical Records Medical records reviewed: Yes I reviewed the patient's medical records. Lab Data Lab results reviewed: Yes I reviewed the patient's lab results. Labs: 01/07/24 14:17 Blood Blood Culture - Preliminary NO GROWTH 24 HOURS 01/07/24 13:53 Blood Blood Culture - Preliminary NO GROWTH 24 HOURS Laboratory Tests Range/Units 01/07/24 13:53 WBC (4.4-10.8) 10^3/uL 9.50 RBC (3.93-5.22) 10^6/uL 4.90 Hgb (11.2-15.7) g/dL 14.7 Hct (36.0-46.0) % 44.7 MCV (80-95) fL 91 MCH (27.0-33.0) pg 30.0 MCHC (32.0-36.0) % 32.9 RDW (11.7-14.6) % 12.6 Plt Count (130-400) 10^3/uL 213 MPV (8.0-11.0) fL 10.4 Immature Gran % % 0.3 Neutrophils % % 56.0 Lymphocytes % % 31.5 Monocytes % % 6.6 Eosinophils % % 5.2 Basophils % % 0.4 Nucleated RBC % (0.0-0.3) % 0.0 Absolute Neutrophils (1.2-6.7) 10^3/uL 5.32 Absolute Lymphocytes (1.2-3.4) 10^3/uL 2.99 Absolute Monocytes (0.1-0.8) 10^3/uL 0.63 Absolute Eosinophils (0.0-0.7) 10^3/uL 0.49 Absolute Basophils (0.0-0.2) 10^3/uL 0.04 ESR (0-20) mm/hr 2 VBG Lactate (0.6-1.4) mmol/L 1.0 Sodium (136-145) mmol/L 138 Potassium (3.5-5.1) mmol/L 3.3 L Chloride (98-107) mmol/L 102 Carbon Dioxide (21.0-32.0) mmol/L 27.6 Anion Gap (3-11) mmol/L 8.4 BUN (7-18) mg/dL 15 Creatinine (0.55-1.02) mg/dL 1.0 Est GFR (CKD-EPI 2020) (mL/min/1.73m2) 74.41 Glucose (74-106) mg/dL 112 H Calcium (8.5-10.1) mg/dL 8.8 Total Bilirubin (0.2-1.0) mg/dL 0.43 AST (15-37) U/L 20 ALT (14-59) U/L 19 Alkaline Phosphatase (46-116) U/L 46 C-Reactive Protein (<or=0.5) mg/dL < 0.50 Total Protein (6.4-8.2) g/dL 7.6 Albumin (3.4-5.0) g/dL 4.4 Procalcitonin ng/mL < 0.1 Lyme Disease Antibody (Negative) Negative Quality:SDOH Health Related Social Needs: No Data to Display PFSH All Active Problems (Updated 01/07/24 @ 14:27 by KLARISSA Sanchez) Contact dermatitis (Acute) Term of female (Acute) Pedal edema (Acute) COVID-19 affecting , antepartum (Acute) Prior macrosomia, antepartum (Acute) History of depression, currently (Acute) Marital relationship problem (Acute) stress over Elderly multigravida, currently (Acute) Personal history of COVID-19 (Acute) Positive test (Acute 04/10/16) Medical History (Updated 01/07/24 @ 14:27 by KLARISSA Sanchez) Acne Surgical History (Updated 06/16/22 @ 00:05 by MITUL RAMSEY) Previous section 10/2016 for Breech presentation Tooth extraction [place]/ other tooth extraction. Age 17. No complications with anesthesia. Family History Mother Obesity Father Alcohol abuse Herniated disc, cervical Sister Obesity Grandfather Heart disease MGF Grandmother Heart disease MGM Breast cancer PGM Other Essential hypertension Social History Smoking/Tobacco Use Status: Never Smoking risk assessment performed?: Yes Drug use: Never Do you feel safe at home: No Do you feel safe in your relationship?: No History History 2 Para 2 Hx # Term Pregnancies 2 Multiple births 0 Hx # Pregnancies 0 Ectopic pregnancies 0 AB induced 0 Hx Number of Living Children 2 AB spontaneous 0 Past Pregnancies Del. Date GA/Weeks # Preg Succ Route Wgt Sex Labor Lgth Anesth esia Location [facility] 11/26/16 40 No Yes 4195.729 g Female D florian Fuchs @ [facility] 06/14/22 39 No Yes vaginal 3600.389 g Female 7hrs 50min ALICIA Hernandez shoulder dystocia Delivery Date: 11/26/16 Last Updated by: Cristina Michael Scheduled C/S for breech, did not attempt ECV because of anterior placenta, but did try acupuncture, chiropractic, etc Eliud
[2024-01-07 14:01] LABS: Abs Immature Grans 0.03 10^3/uL (0.0-0.06); Absolute Basophil Count 0.04 10^3/uL (0.0-0.2); Absolute Eosinophil Count 0.49 10^3/uL (0.0-0.7); Absolute Lymphocyte Count 2.99 10^3/uL (1.2-3.4); Absolute Monocyte Count 0.63 10^3/uL (0.1-0.8); Absolute Neutrophil Count 5.32 10^3/uL (1.2-6.7); Basophils % 0.4 %; Eosinophils % 5.2 %; HCT 44.7 % (36.0-46.0); HGB 14.7 g/dL (11.2-15.7); Immature Grans % 0.3 %; Lymphocytes % 31.5 %; MCHC 32.9 % (32.0-36.0); MCV 91 fL (80-95); MPV 10.4 fL (8.0-11.0); Monocytes % 6.6 %; Platelet Count 213 10^3/uL (130-400); RDW 12.6 % (11.7-14.6); RDW-SD 42.2 fL
[2024-01-07 14:03] LABS: ESR 2 mm/hr (0-20)
[2024-01-07 14:19] LABS: ALT 19 U/L (14-59); AST 20 U/L (15-37); Albumin 4.4 g/dL (3.4-5.0); Alkaline Phosphatase 46 U/L (46-116); Anion Gap 8.4 mmol/L (3-11); BUN 15 mg/dL (7-18); Bilirubin, Total 0.43 mg/dL (0.2-1.0); CO2 27.6 mmol/L (21.0-32.0); Calcium 8.8 mg/dL (8.5-10.1); Chloride 102 mmol/L (98-107); Estimated GFR 74.41 (mL/min/1.73m2); Glucose 112 mg/dL (74-106); Potassium 3.3 mmol/L (3.5-5.1); Sodium 138 mmol/L (136-145); Total Protein 7.6 g/dL (6.4-8.2)
[2024-01-07 14:20] LABS: C-Reactive Protein < 0.50 mg/dL (<or=0.5)
--- NOTE | 2024-01-07 14:24 | ED.PROG_ITS ---
Date of service: 01/07/24 Time of Service: 14:24 Medical Decision Making I saw this patient in conjunction with her advanced practice provider. Please see his note for complete details. In brief this is a 38-year-old female with rash to posterior aspect of left leg for which she initially received doxycycline which was subsequently changed to trimethoprim/sulfamethoxazole with prednisone. She had worsening redness and swelling following topical ivmv-ost-erhvyug treatments with hydrocortisone cream, calamine, and topical diphenhydramine. She has a raised vesicular areas in line with significant surrounding erythema. This originally occurred in a central cross-shaped area. Subsequently on the posterior aspect of her left distal calf there is an approximately 4 cm bullae as shown in the photo as follows. Patient is quite well-appearing. She is mildly tachycardic but afebrile. Concern is for contact dermatitis secondary to ursodiol from poison remy versus bullous pemphigoid. Patient lacks risk factors for bullous pemphigoid patient her age and lack of history of malignancy and lack of furosemide. She has no mucosal involvement to suggest pemphigus vulgaris nor SJS nor TEN. Derm dermatology was consulted for follow-up. Original rash from 10 days ago on patient's phone: Posterior aspect of patient's left leg today: Posterior aspect of distal left calf today: Quality:SDOH Health Related Social Needs: 2 No Data to Display Discharge Plan Disposition Patient Disposition: Home Condition: Stable Discharge Details Clinical Impression: Contact dermatitis Primary Care Provider: Elvira Canales ED Provider: Diego Sinha Home Meds and New Rx's Prescriptions: New clobetasol 0.05 % cream 1 applic topical DAILY Qty: 15 0RF Rx Instructions: apply a thin film to affected area once per day Continued ondansetron HCl 4 mg tablet 4 mg PO TID PRN Unisom (doxylamine) 25 mg tablet 25 mg PO QHS PRN ascorbate calcium (vitamin C) 500 mg tablet 500 mg PO DAILY [id number]-omega 3-fat com #1 27-1-300 mg capsule 1 cap PO DAILY aspirin 81 mg tablet,delayed release (DR/EC) 81 mg PO DAILY Qty: 90 5RF pyridoxine (vitamin B6) 25 mg tablet 25 mg PO DAILY up4 Probiotics Plus Prebiotic 1 billion cell- 1 gram-15 mg tablet,chewable 1 tab PO 1XD Patient Comments: pt taking pink stork probiotic 2-3 times a day. Discharge Instructions Instructions: Contact dermatitis, Clobetasol (Topical) Additional Instructions: You were seen in the emergency department for your severe contact dermatitis with questionable presentation of a rare condition called bullous pemphigoid. I have arranged for follow-up with you at [facility] dermatology clinic on the urgent follow-up list. Please contact them if you have not heard within 48 hours of appointment time. Please continue taking your Olivia daily, please continue taking your prednisone and Bactrim prescribed by other providers, please pharmacy picking technician the topical high potency steroid clobetasol from [facility] in [place] and apply as directed. Should your rash to your abdomen and torso start significantly worsening or you have any sloughing off of skin with any friction around the rash. You need to return to an emergency department immediately. Return for fever and severe increase in swelling. Referrals: [facility] [Outside] Elvira Canales [Primary Care Provider] -
[2024-01-07 14:33] LABS: Procalcitonin < 0.1 ng/mL
[2024-01-07 14:45] VITALS: BP 119/90; PULSE 86; RESP 16; TEMP 37.2; O2SAT 97
[2024-01-08 10:42] LABS: Lyme Ab w Rflx to Lyme Confirm Negative (Negative)
[2024-01-10 15:32] LABS: Anaplasma phagocytophilum Negative (Negative); B. miyamotoi PCR Negative (Negative); Babesia divergens/MO-1 Negative (Negative); Babesia duncani Negative (Negative); Babesia microti Negative (Negative); Ehrlichia chaffeensis Negative (Negative); Ehrlichia ewingii/canis Negative (Negative); Ehrlichia muris eauclairensis Negative (Negative)
== END 2024-01-07 14:52 | disposition home or self-care (01) ==
PROVIDERS: Emergency Provider Physician Assistant; PCP Nurse Practitioner Family
DX: L30.9 Dermatitis, unspecified (principal)
CPT/HCPCS: 00123; 36415; 80053; 84145; 85652; 87040; 87798; 99283; 83605; 85025; 86140; 86618